=== PATIENT | female | born 1980 | race Caucasian/White ===

== ENCOUNTER 2024-03-24 15:18 | Outpatient (CLI) | payer BC, SELFPAY | END 2024-03-24 15:19 | disposition home or self-care (01) | PROVIDERS: Visit Provider Family Medicine | DX: Z13.220 Encounter for screening for lipoid disorders (principal); Z80.41 Family history of malignant neoplasm of ovary; Z13.228 Encounter for screening for other metabolic disorders; Z11.59 Encounter for screening for other viral diseases | CPT/HCPCS: 80053; 80061; 86304; 86803 ==

== ENCOUNTER 2024-06-16 13:35 | Outpatient (CLI) | payer BC, SELFPAY ==
--- NOTE | 2024-06-16 14:00 | CRLHL7_ITS ---
For Patients: As a result of the Century Cures Act, medical imaging exams and procedure reports are released immediately into your electronic medical record. You may view this report before your referring provider. If you have questions, please contact your health care provider. BILATERAL SCREENING MAMMOGRAM WITH COMPUTER-AIDED DETECTION AND TOMOSYNTHESIS TECHNIQUE: CC and MLO views were obtained. These mammographic images have been obtained using full-field digital technique. These mammographic images were interpreted with the benefit of computer-aided detection. Breast Tomosynthesis was used in this interpretation. COMPARISON FILM: No comparison available. FINDINGS: There are scattered areas of fibroglandular density IMPRESSION: There is no radiographic evidence for malignancy. ASSESSMENT: BI-RADS Category 1: Negative RECOMMENDATION: Routine screening mammogram in 1 year. A lay language report of this examination will be provided to the patient. Man Jennings M.D. Diagnostic Radiologist [email or web address] RILEY/[email or web address] / bM/Dictated by: Man Jennings MD @ 07/01/2024 11:08:00 AM (Electronically Signed)
== END 2024-06-16 13:36 | disposition home or self-care (01) ==
LOC: MAMMO 13:36
PROVIDERS: Visit Provider Family Medicine
DX: Z12.31 Encounter for screening mammogram for malignant neoplasm of breast (principal)
CPT/HCPCS: 77063; 77067

== ENCOUNTER 2025-08-08 17:01 | Outpatient (CLI) | payer BC, SELFPAY ==
--- NOTE | 2025-08-08 17:20 | CRLHL7_ITS ---
For Patients: As a result of the Century Cures Act, medical imaging exams and procedure reports are released immediately into your electronic medical record. You may view this report before your referring provider. If you have questions, please contact your health care provider. INDICATION: BILATERAL SCREENING MAMMOGRAM, ASYMPTOMATIC 45 Y/O FEMALE COMPARISON: 06/16/2024 TECHNIQUE: Digital mammogram in CC and MLO projections including computer-aided detection (CAD) and tomosynthesis. BREAST COMPOSITION: There are scattered areas of fibroglandular density. FINDINGS: No suspicious findings. ASSESSMENT: BI-RADS 1 Negative RECOMMENDATION: Annual screening mammogram. A lay language report of this examination will be provided to the patient. Dictated by: Man Jennings MD @ 08/09/2025 10:52:29 (Electronically Signed)
== END 2025-08-08 17:02 | disposition home or self-care (01) ==
LOC: MAMMO 17:02
PROVIDERS: Visit Provider Family Medicine
DX: Z12.31 Encounter for screening mammogram for malignant neoplasm of breast (principal)
CPT/HCPCS: 77063; 77067

== ENCOUNTER 2025-09-11 07:58 | Outpatient (CLI) | payer BC, SELFPAY ==
[2025-09-13 02:04] LABS: HPV Source Endocervical
[2025-09-14 16:43] LABS: Pap Test Digital Imaging Done
== END 2025-09-11 07:59 | disposition home or self-care (01) ==
PROVIDERS: Visit Provider Family Medicine
DX: Z00.00 Encounter for general adult medical examination without abnormal findings (principal); Z12.4 Encounter for screening for malignant neoplasm of cervix
CPT/HCPCS: 80053; 80061; 87624; 87625; 88141; 88142; 88175